=== PATIENT | female | born 1980 | race African-American/Black ===

== ENCOUNTER 2017-05-11 08:45 | Emergency (ER) | payer MEDICAID, OTHER ==
[~2017-05-11] VITALS: Ht 167.6 cm; Wt 133.0 kg
[2017-05-11 08:55] VITALS: BP 159/97
[2017-05-11] MEDS ORDERED: METF500T4 PO (08:59)
[2017-05-11] MEDS ORDERED: HYDR25TA PO (08:59)
[2017-05-11] MEDS ORDERED: BENA20TA3 PO (08:59)
[2017-05-11] MEDS ORDERED: GLIP10TA10 PO (08:59)
== END 2017-05-11 13:41 | disposition home or self-care (01) ==
LOC: ER 09:21
DX: M62.838 Other muscle spasm (principal); M54.2 Cervicalgia; M54.6 Pain in thoracic spine; I10 Essential (primary) hypertension; E11.9 Type 2 diabetes mellitus without complications
CPT/HCPCS: 81025; 99283

== ENCOUNTER 2017-09-05 09:09 | Emergency (ER) | payer MEDICAID ==
[~2017-09-05] VITALS: Ht 167.6 cm; Wt 132.0 kg
[~2017-09-05 09:09] MED LIST: BENA20TA3 PO; GLIP10TA10 PO; HYDR25TA PO; METF500T4 PO
[2017-09-05] MEDS ORDERED: ALBUTEROL (0.083%) 2.5MG/3ML NEB HHN STA (10:58)
[2017-09-05] MEDS ORDERED: ALBUTEROL (0.083%) 2.5MG/3ML NEB ONE (11:08)
[2017-09-05 11:37] VITALS: BP 129/91
== END 2017-09-05 12:09 | disposition home or self-care (01) ==
LOC: ER 09:32
DX: J20.9 Acute bronchitis, unspecified (principal); I10 Essential (primary) hypertension; E11.9 Type 2 diabetes mellitus without complications; Z79.84 Long term (current) use of oral hypoglycemic drugs
CPT/HCPCS: 71045; 81025; 94640; 99283; J7611

== ENCOUNTER 2017-11-23 09:49 | Emergency (ER) | payer SELFPAY ==
[~2017-11-23] VITALS: Ht 167.6 cm; Wt 129.0 kg
[2017-11-23 11:17] LABS: CLARITY URINE CLEAR (CLEAR); COLOR URINE YELLOW (YELLOW); KETONES URINE NEGATIVE (NEGATIVE); LEUKOCYTE ESTERASE URINE NEGATIVE (NEGATIVE); NITRITE URINE NEGATIVE (NEGATIVE); OCCULT BLOOD URINE NEGATIVE (NEGATIVE); PROTEIN URINE NEGATIVE (NEGATIVE); SPECIFIC GRAVITY URINE 1.022 (1.005-1.030); UROBILINOGEN URINE 0.2 E.U./dL (0.2-1.0)
[2017-11-23 11:47] VITALS: BP 134/87
== END 2017-11-23 13:13 | disposition home or self-care (01) ==
LOC: ER 10:59
DX: B37.3 Candidiasis of vulva and vagina (principal); I10 Essential (primary) hypertension; E11.9 Type 2 diabetes mellitus without complications; Z79.84 Long term (current) use of oral hypoglycemic drugs
CPT/HCPCS: 81003; 99283

== ENCOUNTER 2019-04-24 06:47 | Emergency (ER) | payer MEDICAID ==
[~2019-04-24] VITALS: Ht 167.6 cm; Wt 120.0 kg
[~2019-04-24 06:47] MED LIST changes: +BENA20TA10 PO; -BENA20TA3 PO; +METF-414 PO; -METF500T4 PO
[2019-04-24] MEDS ORDERED: BACITRACIN ZINC OINT UDPKT TOP ONE (08:30)
[2019-04-24] MEDS ORDERED: IBUPROFEN 600MG TABLET PO ONE (08:30)
[2019-04-24] MEDS ORDERED: LIDOCAINE HCL/PF 1% 10 MG/ML 5ML VIAL IJ ONE (08:30)
[2019-04-24] MEDS: BACITRACIN ZINC OINT UDPKT TOP SCH ×2 (09:06→09:07)
[2019-04-24 09:20] VITALS: BP 148/91
== END 2019-04-24 10:01 | disposition home or self-care (01) ==
LOC: ER 06:47
DX: L03.032 Cellulitis of left toe (principal); E11.9 Type 2 diabetes mellitus without complications; I10 Essential (primary) hypertension
CPT/HCPCS: 10060; 99283; J3490

== ENCOUNTER 2019-04-26 11:43 | Emergency (ER) | payer MEDICAID ==
[~2019-04-26] VITALS: Ht 167.6 cm; Wt 120.0 kg
[2019-04-26 12:23] VITALS: BP 155/90
[2019-04-26] MEDS ORDERED: LIDOCAINE HCL/PF 1% 10 MG/ML 5ML VIAL IJ ONE (12:45)
[2019-04-26] MEDS ORDERED: BACITRACIN ZINC OINT UDPKT TOP ONE (12:45)
== END 2019-04-26 13:05 | disposition home or self-care (01) ==
LOC: ER 11:43
DX: Z48.00 Encounter for change or removal of nonsurgical wound dressing (principal); M79.675 Pain in left toe(s); I10 Essential (primary) hypertension; E11.9 Type 2 diabetes mellitus without complications
CPT/HCPCS: 99282; J3490

== ENCOUNTER 2019-08-22 20:53 | Emergency (ER) | payer MEDICAID ==
[~2019-08-22] VITALS: Ht 167.6 cm; Wt 123.0 kg
[2019-08-22] MEDS ORDERED: PREDNISONE 20MG TABLET PO ONE (22:30)
[2019-08-22] MEDS ORDERED: FAMOTIDINE 20MG TABLET PO ONE (22:30)
[2019-08-22] MEDS ORDERED: DIPHENHYDRAMINE 50MG CAPSULE PO ONE (22:30)
[2019-08-23 01:44] VITALS: BP 152/92
== END 2019-08-23 01:50 | disposition home or self-care (01) ==
LOC: ER 20:53
DX: H02.845 Edema of left lower eyelid (principal); L29.9 Pruritus, unspecified; T36.1X5A Adverse effect of cephalosporins and other beta-lactam antibiotics, initial encounter; T40.2X5A Adverse effect of other opioids, initial encounter; Y92.89 Other specified places as the place of occurrence of the external cause; Z98.890 Other specified postprocedural states; I10 Essential (primary) hypertension; E11.9 Type 2 diabetes mellitus without complications; Z79.84 Long term (current) use of oral hypoglycemic drugs; Z79.899 Other long term (current) drug therapy
CPT/HCPCS: 81025; 99284; J7512; Q0163

== ENCOUNTER 2019-09-10 06:47 | Emergency (ER) | payer MEDICAID, OTHER ==
[~2019-09-10] VITALS: Ht 167.6 cm; Wt 125.0 kg
[2019-09-10 08:44] LABS: CLARITY URINE CLEAR (CLEAR); COLOR URINE YELLOW (YELLOW); KETONES URINE NEGATIVE (NEGATIVE); LEUKOCYTE ESTERASE URINE NEGATIVE (NEGATIVE); NITRITE URINE NEGATIVE (NEGATIVE); OCCULT BLOOD URINE NEGATIVE (NEGATIVE); PROTEIN URINE 1+ (NEGATIVE); SPECIFIC GRAVITY URINE 1.025 (1.005-1.030); UROBILINOGEN URINE 0.2 E.U./dL (0.2-1.0)
[2019-09-10] MEDS ORDERED: SODIUM CHLORIDE 0.9% 1,000 ML IV ONE (08:49)
[2019-09-10 09:14] LABS: BASOPHILS % 0.6 % (0.0-2.0); CHLORIDE 100 mEq/L (98-107); EOSINOPHILS % 3.5 % (0.0-5.0); HEMATOCRIT. 39.6 % (36.0-48.0); HEMOGLOBIN. 13.2 g/dL (12.0-16.0); LYMPHOCYTES % 29.3 % (20.0-50.0); MEAN CORPUSCULAR HEMOGLOBIN 29.3 pg (28.0-32.0); MEAN CORPUSCULAR VOLUME 87.4 fL (81.0-99.0); MONOCYTES % 6.6 % (2.0-8.0); PLATELET 321 x1000/uL (130-400); RED BLOOD CELL COUNT 4.53 mill/uL (4.2-5.4); RED CELL DISTRIBUTION WIDTH 12.9 % (11.6-14.6)
[2019-09-10 09:28] LABS: BETA HYDROXYBUTYRATE 0.2 mMol/L (0.0-0.3)
[2019-09-10 09:53] VITALS: BP 158/92
== END 2019-09-10 09:54 | disposition home or self-care (01) ==
LOC: ER 06:57
DX: B37.3 Candidiasis of vulva and vagina (principal); R19.7 Diarrhea, unspecified; R00.0 Tachycardia, unspecified; E11.65 Type 2 diabetes mellitus with hyperglycemia; R03.0 Elevated blood-pressure reading, without diagnosis of hypertension; E78.5 Hyperlipidemia, unspecified; Z79.4 Long term (current) use of insulin
CPT/HCPCS: 36415; 80053; 81003; 81025; 82010; 82962; 85025; 96360; 99283; J7030

== ENCOUNTER 2019-10-03 21:30 | Emergency (ER) | payer OTHER ==
[~2019-10-03] VITALS: Ht 167.6 cm; Wt 130.0 kg
[2019-10-03 23:19] VITALS: BP 158/88
== END 2019-10-03 23:20 | disposition home or self-care (01) ==
LOC: ER 21:30
DX: J06.9 Acute upper respiratory infection, unspecified (principal); J30.9 Allergic rhinitis, unspecified; E11.9 Type 2 diabetes mellitus without complications; E78.00 Pure hypercholesterolemia, unspecified; I10 Essential (primary) hypertension; Z79.899 Other long term (current) drug therapy
CPT/HCPCS: 99281; 99283

== ENCOUNTER 2021-01-02 21:20 | Emergency (ER) | payer MEDICAID, OTHER ==
[~2021-01-02] VITALS: Ht 167.6 cm; Wt 127.0 kg
[2021-01-02 21:49] LABS: CLARITY URINE CLEAR (CLEAR); COLOR URINE YELLOW (YELLOW); KETONES URINE NEGATIVE (NEGATIVE); LEUKOCYTE ESTERASE URINE 1+ (NEGATIVE); NITRITE URINE NEGATIVE (NEGATIVE); OCCULT BLOOD URINE NEGATIVE (NEGATIVE); PROTEIN URINE NEGATIVE (NEGATIVE); SPECIFIC GRAVITY URINE 1.026 (1.005-1.030); UROBILINOGEN URINE 0.2 E.U./dL (0.2-1.0)
[2021-01-02 21:54] LABS: UCG SCREEN NEGATIVE
[2021-01-02 22:04] VITALS: BP 131/79
[2021-01-02] MEDS ORDERED: NYST15OI TP (22:17)
[2021-01-02] MEDS ORDERED: DIF15 MT (22:17)
== END 2021-01-02 22:25 | disposition home or self-care (01) ==
LOC: ER 21:20
DX: L29.2 Pruritus vulvae (principal); F12.10 Cannabis abuse, uncomplicated; E11.9 Type 2 diabetes mellitus without complications; E78.00 Pure hypercholesterolemia, unspecified; I10 Essential (primary) hypertension; Z79.899 Other long term (current) drug therapy
CPT/HCPCS: 81003; 81025; 99283

== ENCOUNTER 2021-01-27 20:48 | Emergency (ER) | payer SELFPAY ==
[~2021-01-27] VITALS: Ht 167.6 cm; Wt 125.0 kg
[~2021-01-27 20:48] MED LIST changes: +DIF15 MT; +NYST15OI TP
[2021-01-27 23:17] LABS: CLARITY URINE CLEAR (CLEAR); COLOR URINE YELLOW (YELLOW); KETONES URINE NEGATIVE (NEGATIVE); LEUKOCYTE ESTERASE URINE NEGATIVE (NEGATIVE); NITRITE URINE NEGATIVE (NEGATIVE); OCCULT BLOOD URINE TRACE (NEGATIVE); PROTEIN URINE NEGATIVE (NEGATIVE); SPECIFIC GRAVITY URINE 1.033 (1.005-1.030); UROBILINOGEN URINE 0.2 E.U./dL (0.2-1.0)
[2021-01-28 01:47] VITALS: BP 134/89
[2021-01-30 09:08] LABS: NEISSERIA GONORRHOEAE NAA Negative (Negative)
== END 2021-01-28 01:47 | disposition home or self-care (01) ==
LOC: ER 20:48
DX: N76.0 Acute vaginitis (principal); I10 Essential (primary) hypertension; E11.9 Type 2 diabetes mellitus without complications; K21.9 Gastro-esophageal reflux disease without esophagitis; Z88.1 Allergy status to other antibiotic agents; Z79.899 Other long term (current) drug therapy
CPT/HCPCS: 81003; 81025; 87210; 87491; 87591; 99283; Z7610

== ENCOUNTER 2021-02-03 23:24 | Emergency (ER) | payer MEDICAID ==
[~2021-02-03] VITALS: Ht 167.6 cm; Wt 125.0 kg
[2021-02-04 00:07] LABS: CLARITY URINE CLEAR (CLEAR); COLOR URINE YELLOW (YELLOW); KETONES URINE TRACE (NEGATIVE); LEUKOCYTE ESTERASE URINE 1+ (NEGATIVE); NITRITE URINE NEGATIVE (NEGATIVE); OCCULT BLOOD URINE 1+ (NEGATIVE); PROTEIN URINE NEGATIVE (NEGATIVE); SPECIFIC GRAVITY URINE 1.033 (1.005-1.030); UROBILINOGEN URINE 0.2 E.U./dL (0.2-1.0)
[2021-02-04 00:12] VITALS: BP 148/97
[2021-02-04] MEDS ORDERED: SULF1TAB48 PO (00:50)
[2021-02-04] MEDS ORDERED: FLUC150T5 PO (00:50)
== END 2021-02-04 01:08 | disposition home or self-care (01) ==
LOC: ER 23:24
DX: N39.0 Urinary tract infection, site not specified (principal); N76.0 Acute vaginitis; E11.9 Type 2 diabetes mellitus without complications; K21.9 Gastro-esophageal reflux disease without esophagitis; I10 Essential (primary) hypertension; F12.10 Cannabis abuse, uncomplicated; Z79.899 Other long term (current) drug therapy
CPT/HCPCS: 81003; 81025; 99283

== ENCOUNTER 2021-08-12 23:14 | Emergency (ER) | payer MEDICAID, OTHER ==
[~2021-08-12] VITALS: Ht 167.6 cm; Wt 121.0 kg
[~2021-08-12 23:14] MED LIST changes: +FLUC150T5 PO; +SULF1TAB48 PO
[2021-08-12 23:42] VITALS: BP 141/99
== END 2021-08-13 02:56 | disposition left against medical advice (07) ==
LOC: ER 23:14
DX: Z53.21 Procedure and treatment not carried out due to patient leaving prior to being seen by health care provider (principal); Z20.822 Contact with and (suspected) exposure to COVID-19; R09.89 Other specified symptoms and signs involving the circulatory and respiratory systems
CPT/HCPCS: 87426

== ENCOUNTER 2021-08-20 20:59 | Emergency (ER) | payer OTHER ==
[~2021-08-20] VITALS: Ht 167.6 cm; Wt 125.0 kg
[2021-08-21] MEDS ORDERED: IBUPROFEN 800MG TABLET PO ONE (00:15)
[2021-08-21 05:05] VITALS: BP 129/71
== END 2021-08-21 05:17 | disposition home or self-care (01) ==
LOC: ER 21:06
DX: S09.8XXA Other specified injuries of head, initial encounter (principal); S63.591A Other specified sprain of right wrist, initial encounter; E11.9 Type 2 diabetes mellitus without complications; K21.9 Gastro-esophageal reflux disease without esophagitis; I10 Essential (primary) hypertension; S00.83XA Contusion of other part of head, initial encounter; Y08.89XA Assault by other specified means, initial encounter; Y93.89 Activity, other specified; Y92.89 Other specified places as the place of occurrence of the external cause; Y99.8 Other external cause status; F12.10 Cannabis abuse, uncomplicated; Z79.899 Other long term (current) drug therapy
CPT/HCPCS: 70486; 73110; 81025; 99284

== ENCOUNTER 2021-09-22 05:38 | Emergency (ER) | payer OTHER ==
[~2021-09-22] VITALS: Ht 167.6 cm; Wt 122.0 kg
[~2021-09-22 05:38] MED LIST changes: -BENA20TA10 PO; -DIF15 MT; -FLUC150T5 PO; -GLIP10TA10 PO; +INSU100I24 SQ; +INSU100I32 SQ; -METF-414 PO; +METO-539 PO; -NYST15OI TP; +OMEP40CA20 PO; +SIMV-43 PO; -SULF1TAB48 PO
[2021-09-22 05:44] VITALS: BP 138/89
[2021-09-22 06:23] LABS: CLARITY URINE CLEAR (CLEAR); COLOR URINE YELLOW (YELLOW); KETONES URINE NEGATIVE (NEGATIVE); LEUKOCYTE ESTERASE URINE NEGATIVE (NEGATIVE); NITRITE URINE POSITIVE (NEGATIVE); OCCULT BLOOD URINE TRACE (NEGATIVE); PROTEIN URINE NEGATIVE (NEGATIVE); SPECIFIC GRAVITY URINE 1.024 (1.005-1.030)
[2021-09-22] MEDS ORDERED: NITR100C PO (06:35)
[2021-09-22] MEDS ORDERED: FLUCONAZOLE 150MG TABLET PO ONE (06:45)
[2021-09-22] MEDS ORDERED: FLUCONAZOLE 100MG TABLET PO ONE (06:45)
== END 2021-09-22 07:01 | disposition home or self-care (01) ==
LOC: ER 05:38
DX: N39.0 Urinary tract infection, site not specified (principal); B37.3 Candidiasis of vulva and vagina; E11.9 Type 2 diabetes mellitus without complications; K21.9 Gastro-esophageal reflux disease without esophagitis; F12.10 Cannabis abuse, uncomplicated; Z79.899 Other long term (current) drug therapy
CPT/HCPCS: 81003; 99283

== ENCOUNTER 2021-12-29 03:25 | Emergency (ER) | payer MEDICAID, OTHER ==
[~2021-12-29] VITALS: Ht 167.6 cm; Wt 122.0 kg
[~2021-12-29 03:25] MED LIST changes: +NITR100C PO
[2021-12-29 03:36] VITALS: BP 162/81
[2021-12-29 04:47] LABS: CLARITY URINE CLEAR (CLEAR); COLOR URINE YELLOW (YELLOW); KETONES URINE NEGATIVE (NEGATIVE); LEUKOCYTE ESTERASE URINE NEGATIVE (NEGATIVE); NITRITE URINE POSITIVE (NEGATIVE); OCCULT BLOOD URINE NEGATIVE (NEGATIVE); PROTEIN URINE 2+ (NEGATIVE); SPECIFIC GRAVITY URINE 1.021 (1.005-1.030); UROBILINOGEN URINE 0.2 E.U./dL (0.2-1.0)
[2021-12-29] MEDS ORDERED: NITROFURANTOIN 100MG M/M CAPSULE PO ONE (05:00)
[2021-12-29] MEDS ORDERED: NITR-87 MT (05:09)
[2021-12-29] MEDS ORDERED: ONDANSETRON HCL 4MG/2ML INJ IM ONE (05:15)
[2021-12-29] MEDS ORDERED: GENTAMICIN SULF 40MG/ML 2ML VIAL IM ONE (05:15)
[2021-12-29] MEDS ORDERED: AZITHROMYCIN 500 MG TABLET PO SCH (05:15)
[2021-12-29] MEDS ORDERED: TC1U15 TP (05:50)
[2021-12-31 07:08] LABS: NEISSERIA GONORRHOEAE NAA Negative (Negative)
== END 2021-12-29 07:01 | disposition home or self-care (01) ==
LOC: ER 03:25
DX: N39.0 Urinary tract infection, site not specified (principal); E11.9 Type 2 diabetes mellitus without complications; K21.9 Gastro-esophageal reflux disease without esophagitis; I10 Essential (primary) hypertension; F12.10 Cannabis abuse, uncomplicated; Z79.899 Other long term (current) drug therapy
CPT/HCPCS: 81003; 87210; 87491; 87591; 96372; 99284; J1580; J2405

== ENCOUNTER 2022-01-10 03:43 | Emergency (ER) | payer OTHER ==
[~2022-01-10] VITALS: Ht 167.6 cm; Wt 120.0 kg
[~2022-01-10 03:43] MED LIST changes: +NITR-87 MT; +TC1U15 TP
[2022-01-10] MEDS ORDERED: FLUC150T46 MT (04:09)
[2022-01-10] MEDS ORDERED: FLUCONAZOLE 100MG TABLET PO ONE (04:15)
[2022-01-10] MEDS ORDERED: FLUCONAZOLE 150MG TABLET PO SCH (04:30)
[2022-01-10 05:23] VITALS: BP 115/74
== END 2022-01-10 05:25 | disposition home or self-care (01) ==
LOC: ER 03:43
DX: B37.3 Candidiasis of vulva and vagina (principal); F12.10 Cannabis abuse, uncomplicated; E78.00 Pure hypercholesterolemia, unspecified; I10 Essential (primary) hypertension; E11.9 Type 2 diabetes mellitus without complications; Z88.1 Allergy status to other antibiotic agents; Z79.899 Other long term (current) drug therapy
CPT/HCPCS: 99283

== ENCOUNTER 2022-02-14 19:57 | Emergency (ER) | payer MEDICAID, OTHER ==
[~2022-02-14] VITALS: Ht 167.6 cm; Wt 128.3 kg
[~2022-02-14 19:57] MED LIST changes: +FLUC150T46 MT
[2022-02-14 20:25] VITALS: BP 174/104
[2022-02-14] MEDS ORDERED: ACETAMINOPHEN 325MG TABLET PO ONE (21:00)
[2022-02-14] MEDS ORDERED: IBUPROFEN 400MG TABLET PO ONE (21:00)
[2022-02-14] MEDS ORDERED: IBUP-2028 MT (22:17)
[2022-02-14] MEDS ORDERED: TOPUD PO (22:17)
== END 2022-02-14 23:15 | disposition home or self-care (01) ==
LOC: ER 19:57
DX: B34.9 Viral infection, unspecified (principal); F12.10 Cannabis abuse, uncomplicated; E11.9 Type 2 diabetes mellitus without complications; I10 Essential (primary) hypertension; E78.00 Pure hypercholesterolemia, unspecified; Z01.84 Encounter for antibody response examination; Z20.822 Contact with and (suspected) exposure to COVID-19; Z88.1 Allergy status to other antibiotic agents; Z79.899 Other long term (current) drug therapy
CPT/HCPCS: 87426; 99283; C9803

== ENCOUNTER 2022-03-12 12:34 | Emergency (ER) | payer OTHER ==
[~2022-03-12] VITALS: Ht 167.6 cm; Wt 130.0 kg
[~2022-03-12 12:34] MED LIST changes: +IBUP-2028 MT; +TOPUD PO
[2022-03-12] MEDS ORDERED: GENTAMICIN SULF 40MG/ML 2ML VIAL IM ONE (16:30)
[2022-03-12] MEDS ORDERED: AZITHROMYCIN 500 MG TABLET PO ONE (16:30)
[2022-03-12] MEDS ORDERED: METR-167 MT (17:04)
[2022-03-12] MEDS ORDERED: DIF15 MT (17:04)
[2022-03-12 17:25] VITALS: BP 135/66
[2022-03-15 09:06] LABS: NEISSERIA GONORRHOEAE NAA Negative (Negative)
== END 2022-03-12 17:26 | disposition home or self-care (01) ==
LOC: ER 12:34
DX: N76.0 Acute vaginitis (principal); A64 Unspecified sexually transmitted disease; E11.9 Type 2 diabetes mellitus without complications; K21.9 Gastro-esophageal reflux disease without esophagitis; E78.00 Pure hypercholesterolemia, unspecified; I10 Essential (primary) hypertension; F12.10 Cannabis abuse, uncomplicated; Z79.899 Other long term (current) drug therapy
CPT/HCPCS: 81025; 87210; 87491; 87591; 96372; 99283; J1580

== ENCOUNTER 2022-04-22 00:13 | Emergency (ER) | payer MEDICAID, OTHER ==
[~2022-04-22] VITALS: Ht 170.2 cm; Wt 130.9 kg
[~2022-04-22 00:13] MED LIST changes: +DIF15 MT; +METR-167 MT
[2022-04-22 01:15] VITALS: BP 199/123
[2022-04-22] MEDS ORDERED: FLUCONAZOLE 100MG TABLET PO ONE (01:45)
[2022-04-22 01:56] LABS: CLARITY URINE CLEAR (CLEAR); COLOR URINE YELLOW (YELLOW); KETONES URINE NEGATIVE (NEGATIVE); LEUKOCYTE ESTERASE URINE 1+ (NEGATIVE); NITRITE URINE NEGATIVE (NEGATIVE); OCCULT BLOOD URINE TRACE (NEGATIVE); PROTEIN URINE 3+ (NEGATIVE); SPECIFIC GRAVITY URINE 1.026 (1.005-1.030); UROBILINOGEN URINE 0.2 E.U./dL (0.2-1.0)
[2022-04-22] MEDS ORDERED: FLUCONAZOLE 150MG TABLET PO NR (02:00)
[2022-04-22] MEDS ORDERED: DIF15 MT (02:16)
[2022-04-22] MEDS ORDERED: CLONIDINE 0.2MG TABLET PO NR (02:30)
== END 2022-04-22 02:30 | disposition home or self-care (01) ==
LOC: ER 00:13
DX: B37.3 Candidiasis of vulva and vagina (principal); E11.65 Type 2 diabetes mellitus with hyperglycemia; I16.0 Hypertensive urgency; E78.00 Pure hypercholesterolemia, unspecified; Z63.79 Other stressful life events affecting family and household; Z71.89 Other specified counseling; Z79.4 Long term (current) use of insulin; Z79.899 Other long term (current) drug therapy
CPT/HCPCS: 81003; 82962; 99283

== ENCOUNTER 2022-06-10 23:46 | Emergency (ER) | payer MEDICAID, OTHER ==
[~2022-06-10] VITALS: Ht 167.6 cm; Wt 130.9 kg
[2022-06-10 23:52] VITALS: BP 191/108
[2022-06-11] MEDS ORDERED: FLUCONAZOLE 50MG TABLET PO ONE (01:15)
[2022-06-11] MEDS ORDERED: FLUCONAZOLE 150MG TABLET PO NR (01:30)
== END 2022-06-11 01:37 | disposition home or self-care (01) ==
LOC: ER 06-11 00:10
DX: L29.9 Pruritus, unspecified (principal); F12.10 Cannabis abuse, uncomplicated; E11.9 Type 2 diabetes mellitus without complications; K21.9 Gastro-esophageal reflux disease without esophagitis; I10 Essential (primary) hypertension; Z79.899 Other long term (current) drug therapy
CPT/HCPCS: 87210; 99283

== ENCOUNTER 2022-06-18 06:23 | Emergency (ER) | payer OTHER ==
[~2022-06-18] VITALS: Ht 167.6 cm; Wt 130.0 kg
[2022-06-18] MEDS ORDERED: KETOROLAC 30MG/ML VIAL IM ONE (07:45)
[2022-06-18 07:56] VITALS: BP 128/86
== END 2022-06-18 08:01 | disposition home or self-care (01) ==
LOC: ER 06:23
DX: J06.9 Acute upper respiratory infection, unspecified (principal); R05.9 Cough, unspecified; R09.81 Nasal congestion; E11.9 Type 2 diabetes mellitus without complications; I10 Essential (primary) hypertension; F12.10 Cannabis abuse, uncomplicated; Z79.899 Other long term (current) drug therapy
CPT/HCPCS: 81025; 96372; 99283; J1885

== ENCOUNTER 2022-07-17 15:56 | Emergency (ER) | payer MEDICAID, OTHER ==
[~2022-07-17] VITALS: Ht 172.7 cm; Wt 90.0 kg
[2022-07-17 16:04] VITALS: BP 153/98
[2022-07-17] MEDS ORDERED: DIF15 MT (19:28)
== END 2022-07-17 19:42 | disposition home or self-care (01) ==
LOC: ER 15:56
DX: B37.31 Acute candidiasis of vulva and vagina (principal); I10 Essential (primary) hypertension; E11.9 Type 2 diabetes mellitus without complications; Z79.4 Long term (current) use of insulin; Z79.899 Other long term (current) drug therapy
CPT/HCPCS: 81025; 99282; 99283

== ENCOUNTER 2023-11-27 20:36 | Inpatient (IN) | payer MEDICAID ==
[~2023-11-27] VITALS: Ht 167.6 cm; Wt 126.1 kg
[2023-11-27 21:43] LABS: BASOPHILS % 0.3 % (0.0-2.0); EOSINOPHILS % 1.5 % (0.0-5.0); HEMATOCRIT. 39.9 % (36.0-48.0); HEMOGLOBIN. 13.7 g/dL (12.0-16.0); LYMPHOCYTES % 27.6 % (20.0-50.0); MEAN CORPUSCULAR HGB CONC 34.2 g/dL (31.0-37.0); MEAN CORPUSCULAR VOLUME 87.6 fL (81.0-99.0); MEAN PLATELET VOLUME 9.6 fl (7.4-10.4); MONOCYTES % 7.9 % (2.0-8.0); NEUTROPHILS % 62.7 % (40.0-76.0); PLATELET 338 x1000/uL (130-400); RED BLOOD CELL COUNT 4.56 mill/uL (4.2-5.4); RED CELL DISTRIBUTION WIDTH 13.8 % (11.6-14.6); WHITE BLOOD COUNT 8.6 x1000/uL (4.5-11.0)
[2023-11-27 21:48] LABS: CHLORIDE 91 mEq/L (98-107); POTASSIUM 3.7 mEq/L (3.5-5.1); SODIUM 129 mEq/L (136-145)
[2023-11-27 21:49] LABS: CARBON DIOXIDE 24 mEq/L (21-32)
[2023-11-27 21:50] LABS: CALCIUM 9.7 mg/dL (8.7-10.4)
[2023-11-27 21:54] LABS: CREATININE 4.1 mg/dL (0.6-1.0); UREA NITROGEN BLOOD 30 mg/dL (9-23)
[2023-11-27 21:55] LABS: TROPONIN I HIGH SENSITIVITY 8 ng/L (3.0-34)
[2023-11-27 21:56] LABS: ALANINE AMINOTRANSFERASE 20 IU/L (10-49); ALBUMIN 4.8 g/dL (3.2-4.8); ASPARTATE AMINOTRANSFERASE 25 IU/L (<34)
[2023-11-27 21:57] LABS: BILIRUBIN TOTAL 0.8 mg/dL (0.1-1.0); GLUCOSE 419 mg/dL (70-105)
[2023-11-27 21:58] LABS: PROTEIN TOTAL 9.3 g/dL (6.0-8.3)
[2023-11-27 23:45] LABS: HCG SCREEN NEGATIVE
[2023-11-28] MEDS ORDERED: POTASSIUM CHLORIDE 30 MEQ in DEXT 5%/0.9% NACL 985 ML IV SCH
[2023-11-28] MEDS: SODIUM CHLORIDE 0.9% 1,000 ML IV NR (00:10)
[2023-11-28] MEDS: ONDANSETRON HCL 4MG/2ML INJ IV NR (00:27)
[2023-11-28] MEDS: INSULIN REGULAR (HUMULIN R) 1000UNITS/10ML VIAL SUBCUT NR (00:30)
[2023-11-28] MEDS ORDERED: DEXTROSE 50% WATER 50ML SYRINGE IV PRN (02:30)
[2023-11-28] MEDS ORDERED: ACETAMINOPHEN 650MG/20.3ML UDC GT PRN (02:30)
[2023-11-28] MEDS ORDERED: ONDANSETRON HCL 4MG/2ML INJ IV PRN (02:30)
[2023-11-28] MEDS ORDERED: IPRATROPIUM/ALBUTEROL 0.5-3(2.5)MG/3ML NEB HHN PRN (02:30)
[2023-11-28] MEDS ORDERED: MAGNESIUM/ALUMINUM HYDROXIDE/SIMETHICONE 30ML UDC PO PRN (02:30)
[2023-11-28] MEDS: DEXT IV SCH (03:17)
[2023-11-28] MEDS: PANTOPRAZOLE SODIUM 40 MG/VIAL IV SCH (03:17)
[2023-11-28] MEDS: NACL IV SCH (03:17)
[2023-11-28] MEDS: POTASSIUM CHLORIDE IV SCH (03:17)
[2023-11-28 03:55] VITALS: BP 139/79; PULSE 93; RESP 20; TEMP 98.3
[2023-11-28 04:59] VITALS: BP 139/79; PULSE 96; RESP 20; TEMP 98.3
[2023-11-28] MEDS: BLOOD SUGAR DIAGNOSTIC STRIP TEST SCH (06:42)
[2023-11-28] MEDS: INSULIN REGULAR (HUMULIN R) 1000UNITS/10ML VIAL IV SCH (06:45)
[2023-11-28 08:00] VITALS: BP 120/84; PULSE 107; RESP 18; TEMP 97.7
[2023-11-28] MEDS: ENOXAPARIN 40MG/0.4ML SYR SUBCUT SCH (08:09)
[2023-11-28] MEDS: INSULIN LISPRO 100 UNITS/ML SUBCUT SCH (08:10)
[2023-11-28 08:18] LABS: CHLORIDE 93 mEq/L (98-107); POTASSIUM 3.6 mEq/L (3.5-5.1); SODIUM 128 mEq/L (136-145)
[2023-11-28 08:19] LABS: CALCIUM 9.3 mg/dL (8.7-10.4); CARBON DIOXIDE 25 mEq/L (21-32)
[2023-11-28 08:24] LABS: GLUCOSE 368 mg/dL (70-105); UREA NITROGEN BLOOD 30 mg/dL (9-23)
[2023-11-28 08:26] LABS: PHOSPHORUS 2.9 mg/dL (2.5-4.9)
[2023-11-28 08:36] LABS: HEPATITIS B SURFACE ANTIGEN NEGATIVE (Negative)
[2023-11-28 08:57] LABS: HEPATITIS C AB NON REACTIVE (Neg) (Negative)
[2023-11-28] MEDS: SODIUM CHLORIDE 0.9% 1,000 ML IV SCH (10:21)
[2023-11-28 12:00] VITALS: BP 132/92; PULSE 106; RESP 18; TEMP 96.1
[2023-11-28] MEDS ORDERED: LISI40TA13 PO (13:22)
[2023-11-28] MEDS ORDERED: QUET300T2 PO (13:22)
[2023-11-28] MEDS: HYDROCHLOROTHIAZIDE 25MG TABLET PO SCH (13:49)
[2023-11-28] MEDS: INFLUENZA VACCINE 05/PF 0.5 ML SYRINGE IM ONE (14:53)
[2023-11-28 15:02] LABS: CLARITY URINE CLEAR (CLEAR); COLOR URINE YELLOW (YELLOW); GLUCOSE URINE 3+ (NEGATIVE); KETONES URINE NEGATIVE (NEGATIVE); LEUKOCYTE ESTERASE URINE NEGATIVE (NEGATIVE); NITRITE URINE NEGATIVE (NEGATIVE); OCCULT BLOOD URINE NEGATIVE (NEGATIVE); PROTEIN URINE TRACE (NEGATIVE); SPECIFIC GRAVITY URINE 1.021 (1.005-1.030); UROBILINOGEN URINE 0.2 E.U./dL (0.2-1.0)
[2023-11-28 15:10] LABS: *AMPHETAMINES SCREEN URINE NEGATIVE (NEGATIVE); *BARBITURATES SCREEN URINE NEGATIVE (NEGATIVE); *BENZODIAZEPINES SCREEN URINE NEGATIVE (NEGATIVE); *COCAINE SCREEN URINE PRESUMPTIVE POSITIVE (NEGATIVE); ECSTASY MDMA SCREEN URINE NEGATIVE (NEGATIVE); METHADONE URINE SCREEN NEGATIVE (NEGATIVE); OPIATES URINE SCREEN NEGATIVE (NEGATIVE); PHENCYCLIDINE URINE SCREEN NEGATIVE (NEGATIVE)
[2023-11-28 15:11] LABS: CANNABINOID URINE SCREEN PRESUMPTIVE POSITIVE (NEGATIVE)
[2023-11-28 15:27] LABS: SQUAMOUS EPITHELIAL CELL URINE 1+ /lpf (RARE/1+)
[2023-11-28 15:28] LABS: BACTERIA URINE 1+; WBC URINE 0-2 /hpf (0-2)
[2023-11-28 15:29] LABS: RBC URINE 0-2 /hpf (0-2)
[2023-11-28 16:10] VITALS: BP 120/71; PULSE 87; RESP 18; TEMP 98.8
[2023-11-28 20:00] VITALS: BP 140/91; PULSE 94; RESP 19; TEMP 98.1
[2023-11-28] MEDS: QUETIAPINE FUMARATE 200MG TABLET PO SCH (21:23)
[2023-11-28] MEDS: INSULIN GLARGINE 100 UNITS/ML SUBCUT SCH (21:46)
[2023-11-28] MEDS: ATORVASTATIN CALCIUM 40MG TABLET PO SCH (21:54)
[2023-11-29] VITALS (7 sets, daily range): BP systolic 118–164; BP diastolic 71–109; PULSE 91–108; RESP 18–22; TEMP 96.9–97.7
[2023-11-29 07:01] LABS: BASOPHILS % 0.2 % (0.0-2.0); EOSINOPHILS % 4.5 % (0.0-5.0); HEMATOCRIT. 34.3 % (36.0-48.0); HEMOGLOBIN. 11.6 g/dL (12.0-16.0); LYMPHOCYTES % 35.6 % (20.0-50.0); MEAN CORPUSCULAR HEMOGLOBIN 29.5 pg (28.0-32.0); MEAN CORPUSCULAR HGB CONC 33.9 g/dL (31.0-37.0); MEAN PLATELET VOLUME 9.5 fl (7.4-10.4); MONOCYTES % 10.8 % (2.0-8.0); NEUTROPHILS % 48.9 % (40.0-76.0); PLATELET 248 x1000/uL (130-400); RED BLOOD CELL COUNT 3.95 mill/uL (4.2-5.4); RED CELL DISTRIBUTION WIDTH 13.7 % (11.6-14.6); WHITE BLOOD COUNT 5.3 x1000/uL (4.5-11.0)
[2023-11-29 07:40] LABS: CALCIUM 8.8 mg/dL (8.7-10.4); POTASSIUM 3.9 mEq/L (3.5-5.1)
[2023-11-29 07:48] LABS: CREATININE 1.7 mg/dL (0.6-1.0); THYROID STIMULATING HORMONE 0.81 uIU/mL (0.55-4.78)
[2023-11-29] MEDS: OMEPRAZOLE 20MG CAPSULE EXTENDED RELEASE PO SCH (08:03)
[2023-11-29] MEDS: INSULIN LISPRO 100 UNITS/ML SUBCUT SCH (17:20)
[2023-11-29] MEDS: INSULIN GLARGINE 100 UNITS/ML SUBCUT SCH (22:50)
[2023-11-30] VITALS: BP 134/87; PULSE 92; RESP 18; TEMP 97.7
[2023-11-30 04:00] VITALS: BP 132/86; PULSE 84; RESP 18; TEMP 97.1
[2023-11-30 08:00] VITALS: BP 146/104; PULSE 94; RESP 20; TEMP 97.5
[2023-11-30 10:28] VITALS: BP 146/104; PULSE 99; TEMP 97.5; O2SAT 98
[2023-12-01] MEDS ORDERED: FAMOTIDINE 20MG TABLET PO SCH (07:40)
== END 2023-11-30 11:30 | disposition home or self-care (01) | DRG 420 ==
LOC: ER 20:36 → 7WST 11-28 04:50
PROVIDERS: ADMIT Hospitalist; ATTEND Hospitalist
DX: E11.65 Type 2 diabetes mellitus with hyperglycemia (principal); N17.0 Acute kidney failure with tubular necrosis; I50.9 Heart failure, unspecified; I11.0 Hypertensive heart disease with heart failure; E87.1 Hypo-osmolality and hyponatremia; F41.1 Generalized anxiety disorder; E86.9 Volume depletion, unspecified; K21.9 Gastro-esophageal reflux disease without esophagitis; Z79.4 Long term (current) use of insulin; Z88.1 Allergy status to other antibiotic agents; Z91.148 Patient's other noncompliance with medication regimen for other reason
CPT/HCPCS: 36415; 74176; 80048; 80053; 80061; 80305; 81003; 82010; 82533; 82803; 82962; 83036; 83605; 83735; 83880; 84100; 84443; 84484; 84703; 85025; 86705; 87340; 90686; 93005; 93306; 99285; C9113; J1650; J1815; J2405; J3480; J7030; J7042

== ENCOUNTER 2024-01-11 16:50 | Emergency (ER) | payer MEDICAID ==
[~2024-01-11] VITALS: Ht 172.7 cm; Wt 120.0 kg
[~2024-01-11 16:50] MED LIST changes: -DIF15 MT; -FLUC150T46 MT; +LISI40TA13 PO; -METO-539 PO; -METR-167 MT; -NITR-87 MT; -NITR100C PO; +QUET300T2 PO; -TC1U15 TP
[2024-01-11 17:08] VITALS: TEMP 98.1; O2SAT 95
[2024-01-11 17:39] LABS: CLARITY URINE CLOUDY (CLEAR); COLOR URINE YELLOW (YELLOW); GLUCOSE URINE 3+ (NEGATIVE); KETONES URINE NEGATIVE (NEGATIVE); LEUKOCYTE ESTERASE URINE NEGATIVE (NEGATIVE); NITRITE URINE POSITIVE (NEGATIVE); OCCULT BLOOD URINE NEGATIVE (NEGATIVE); PROTEIN URINE 1+ (NEGATIVE); SPECIFIC GRAVITY URINE 1.029 (1.005-1.030); UROBILINOGEN URINE 0.2 E.U./dL (0.2-1.0)
[2024-01-11 18:01] LABS: BACTERIA URINE 2+; RBC URINE 0-2 /hpf (0-2); SQUAMOUS EPITHELIAL CELL URINE 1+ /lpf (RARE/1+); WBC URINE 0-2 /hpf (0-2)
[2024-01-11] MEDS ORDERED: FLUC150T46 MT (19:03)
[2024-01-11] MEDS ORDERED: NITR-87 MT (19:03)
[2024-01-11] MEDS ORDERED: BENZ200C52 MT (19:03)
[2024-01-11 19:16] VITALS: BP 134/77; PULSE 78; RESP 20
== END 2024-01-11 19:19 | disposition home or self-care (01) ==
LOC: ER 16:50
DX: R05.9 Cough, unspecified (principal); N30.90 Cystitis, unspecified without hematuria; E11.9 Type 2 diabetes mellitus without complications; K21.9 Gastro-esophageal reflux disease without esophagitis; I10 Essential (primary) hypertension; F12.10 Cannabis abuse, uncomplicated; Z79.899 Other long term (current) drug therapy
CPT/HCPCS: 71045; 81003; 81025; 99284

== ENCOUNTER 2024-06-14 18:08 | Emergency (ER) | payer MEDICAID ==
[~2024-06-14] VITALS: Ht 167.6 cm; Wt 120.2 kg
[~2024-06-14 18:08] MED LIST changes: +BENZ200C52 MT; +FLUC150T46 MT; +NITR-87 MT
[2024-06-14 18:22] VITALS: O2SAT 100
[2024-06-14] MEDS: LOSARTAN 100 MG TABLET PO ONE (19:21)
[2024-06-14 19:55] LABS: BASOPHILS % 0.3 % (0.0-2.0); EOSINOPHILS % 3.6 % (0.0-5.0); HEMATOCRIT. 38.5 % (36.0-48.0); HEMOGLOBIN. 12.6 g/dL (12.0-16.0); LYMPHOCYTES % 33.1 % (20.0-50.0); MEAN CORPUSCULAR HEMOGLOBIN 28.6 pg (28.0-32.0); MEAN CORPUSCULAR HGB CONC 32.7 g/dL (31.0-37.0); MEAN CORPUSCULAR VOLUME 87.6 fL (81.0-99.0); MEAN PLATELET VOLUME 8.4 fl (7.4-10.4); MONOCYTES % 8.6 % (2.0-8.0); NEUTROPHILS % 54.4 % (40.0-76.0); PLATELET 387 x1000/uL (130-400); RED BLOOD CELL COUNT 4.39 mill/uL (4.2-5.4); RED CELL DISTRIBUTION WIDTH 14.3 % (11.6-14.6); WHITE BLOOD COUNT 9.5 x1000/uL (4.5-11.0)
[2024-06-14 20:07] LABS: POTASSIUM 3.6 mEq/L (3.5-5.1)
[2024-06-14 20:08] LABS: CALCIUM 9.5 mg/dL (8.7-10.4)
[2024-06-14 20:10] LABS: CLARITY URINE CLOUDY (CLEAR); COLOR URINE YELLOW (YELLOW); GLUCOSE URINE 3+ (NEGATIVE); KETONES URINE TRACE (NEGATIVE); LEUKOCYTE ESTERASE URINE NEGATIVE (NEGATIVE); NITRITE URINE NEGATIVE (NEGATIVE); OCCULT BLOOD URINE TRACE (NEGATIVE); PH URINE 5.5 (4.5-8.0); PROTEIN URINE 4+ (NEGATIVE); SPECIFIC GRAVITY URINE 1.036 (1.005-1.030)
[2024-06-14 20:13] LABS: CREATININE 1.3 mg/dL (0.6-1.0)
[2024-06-14 20:25] LABS: BACTERIA URINE 2+; RBC URINE 0-2 /hpf (0-2); SQUAMOUS EPITHELIAL CELL URINE 1+ /lpf (RARE/1+); WBC URINE 0-2 /hpf (0-2)
[2024-06-14] MEDS ORDERED: LISI40TA13 PO (21:29)
[2024-06-14] MEDS ORDERED: LOSA50TA41 MT (21:29)
[2024-06-14 21:43] VITALS: BP 145/60; PULSE 75; RESP 20; TEMP 36.94740; O2SAT 100
== END 2024-06-14 21:45 | disposition home or self-care (01) ==
LOC: ER 18:08
DX: I10 Essential (primary) hypertension (principal); E11.9 Type 2 diabetes mellitus without complications; Z88.1 Allergy status to other antibiotic agents; Z79.899 Other long term (current) drug therapy; Z79.4 Long term (current) use of insulin
CPT/HCPCS: 36415; 71045; 80048; 81003; 85025; 99284

== ENCOUNTER 2024-09-09 07:24 | Emergency (ER) | payer MEDICAID ==
[~2024-09-09] VITALS: Ht 167.6 cm; Wt 121.0 kg
[~2024-09-09 07:24] MED LIST changes: +LOSA50TA41 MT
[2024-09-09 07:32] VITALS: BP 175/103; PULSE 70; RESP 16; TEMP 36.8; O2SAT 100
[2024-09-09] MEDS ORDERED: METH-653 MT (08:52)
[2024-09-09] MEDS ORDERED: BO1 TP (08:52)
== END 2024-09-09 09:19 | disposition home or self-care (01) ==
LOC: ER 07:24
DX: S13.4XXA Sprain of ligaments of cervical spine, initial encounter (principal); L60.0 Ingrowing nail; K21.9 Gastro-esophageal reflux disease without esophagitis; E11.9 Type 2 diabetes mellitus without complications; I10 Essential (primary) hypertension; F12.90 Cannabis use, unspecified, uncomplicated; Z88.1 Allergy status to other antibiotic agents; Z79.899 Other long term (current) drug therapy; Z79.4 Long term (current) use of insulin; X58.XXXA Exposure to other specified factors, initial encounter; Y93.89 Activity, other specified; Y92.89 Other specified places as the place of occurrence of the external cause; Y99.8 Other external cause status
CPT/HCPCS: 99283

== ENCOUNTER 2024-09-16 01:21 | Emergency (ER) | payer MEDICAID ==
[~2024-09-16] VITALS: Ht 167.6 cm; Wt 118.0 kg
[~2024-09-16 01:21] MED LIST changes: +BO1 TP; +METH-653 MT
[2024-09-16 01:32] VITALS: O2SAT 97
[2024-09-16 01:34] VITALS: TEMP 36.9; O2SAT 97
[2024-09-16 04:42] VITALS: BP 187/108; PULSE 76; RESP 16; TEMP 98.4
[2024-09-16] MEDS: KETOROLAC 30MG/ML VIAL IM ONE (04:42)
[2024-09-16] MEDS: ACETAMINOPHEN 325MG TABLET PO ONE (04:42)
[2024-09-16] MEDS ORDERED: FLUC150T46 MT (05:47)
[2024-09-16] MEDS ORDERED: IBUP-2029 MT (05:47)
[2024-09-16] MEDS ORDERED: CEPH500C2 MT (05:47)
[2024-09-16] MEDS ORDERED: SULF1TAB48 MT (05:47)
[2024-09-17] MEDS ORDERED: IBUP-2029 MT (10:27)
[2024-09-17] MEDS ORDERED: HYDR-4001 MT (10:27)
== END 2024-09-16 05:55 | disposition home or self-care (01) ==
LOC: ER 01:21
DX: L03.012 Cellulitis of left finger (principal); E11.9 Type 2 diabetes mellitus without complications; I10 Essential (primary) hypertension; F12.10 Cannabis abuse, uncomplicated; Z79.899 Other long term (current) drug therapy; Z79.4 Long term (current) use of insulin
CPT/HCPCS: 99283; 10060; 96372; J1885; 26010

== ENCOUNTER 2024-09-17 08:52 | Emergency (ER) | payer MEDICAID ==
[~2024-09-17] VITALS: Ht 167.6 cm; Wt 120.0 kg
[~2024-09-17 08:52] MED LIST changes: +CEPH500C2 MT; +IBUP-2029 MT; +SULF1TAB48 MT
[2024-09-17 08:56] VITALS: O2SAT 95
[2024-09-17 09:00] VITALS: BP 200/106; PULSE 73; RESP 16; TEMP 36.9; O2SAT 100
[2024-09-17] MEDS ORDERED: HYDR-4001 MT (10:27)
[2024-09-17] MEDS ORDERED: IBUP-2029 MT (10:27)
== END 2024-09-17 10:52 | disposition home or self-care (01) ==
LOC: ER 08:52
DX: S61.303A Unspecified open wound of left middle finger with damage to nail, initial encounter (principal); I10 Essential (primary) hypertension; E11.9 Type 2 diabetes mellitus without complications; K21.9 Gastro-esophageal reflux disease without esophagitis; F12.90 Cannabis use, unspecified, uncomplicated; Z79.899 Other long term (current) drug therapy; Z79.4 Long term (current) use of insulin; X58.XXXA Exposure to other specified factors, initial encounter; Y93.89 Activity, other specified; Y92.89 Other specified places as the place of occurrence of the external cause; Y99.8 Other external cause status
CPT/HCPCS: 11730; 99284; Z7610

== ENCOUNTER 2024-10-17 08:47 | Emergency (ER) | payer MEDICAID ==
[~2024-10-17] VITALS: Ht 170.2 cm; Wt 70.0 kg
[~2024-10-17 08:47] MED LIST changes: +HYDR-4001 MT
[2024-10-17 08:55] VITALS: O2SAT 99
[2024-10-17 09:21] LABS: CLARITY URINE TURBID (CLEAR); COLOR URINE YELLOW (YELLOW); GLUCOSE URINE 3+ (NEGATIVE); KETONES URINE NEGATIVE (NEGATIVE); LEUKOCYTE ESTERASE URINE 2+ (NEGATIVE); NITRITE URINE NEGATIVE (NEGATIVE); OCCULT BLOOD URINE 3+ (NEGATIVE); PH URINE 5.5 (4.5-8.0); PROTEIN URINE 3+ (NEGATIVE); SPECIFIC GRAVITY URINE 1.022 (1.005-1.030); UROBILINOGEN URINE 0.2 E.U./dL (0.2-1.0)
[2024-10-17] MEDS ORDERED: FLUC150T46 MT (09:26)
[2024-10-17] MEDS ORDERED: CEFP200T14 MT (09:26)
[2024-10-17 09:42] VITALS: BP 148/111; PULSE 82; RESP 16; TEMP 36.7; O2SAT 99
[2024-10-17 10:12] LABS: SQUAMOUS EPITHELIAL CELL URINE FEW /lpf (RARE/1+)
[2024-10-17 10:13] LABS: BACTERIA URINE 4+; WBC URINE 50-100 /hpf (0-2)
[2024-10-17 10:14] LABS: YEAST URINE NONE SEEN
== END 2024-10-17 09:45 | disposition home or self-care (01) ==
LOC: ER 08:47
DX: N30.90 Cystitis, unspecified without hematuria (principal); E11.9 Type 2 diabetes mellitus without complications; I10 Essential (primary) hypertension; K21.9 Gastro-esophageal reflux disease without esophagitis; F12.90 Cannabis use, unspecified, uncomplicated; Z79.899 Other long term (current) drug therapy
CPT/HCPCS: 81003; 81025; 87077; 87186; 99283

== ENCOUNTER 2025-06-17 03:48 | Emergency (ER) | payer MEDICAID ==
[~2025-06-17] VITALS: Ht 162.6 cm; Wt 103.0 kg
[~2025-06-17 03:48] MED LIST changes: +CEFP200T14 MT; +IBUP-1455 MT; -IBUP-2029 MT; -LISI40TA13 PO; +LISI40TA21 PO
[2025-06-17 04:46] VITALS: O2SAT 100
[2025-06-17] MEDS ORDERED: AMOX-494 MT (04:51)
[2025-06-17] MEDS ORDERED: FLUC150T46 MT (04:51)
[2025-06-17] MEDS ORDERED: IBUP-1455 MT (04:51)
[2025-06-17 04:56] VITALS: TEMP 36.6
[2025-06-17] MEDS: DEXAMETHASONE 4MG/ML 1ML VIAL IM SCH (05:14)
[2025-06-17] MEDS: KETOROLAC 30MG/ML VIAL IM ONE (05:14)
[2025-06-17] MEDS: AMOXICILLIN 500MG CAPSULE PO ONE (05:14)
[2025-06-17 05:18] VITALS: BP 178/113; PULSE 83; RESP 16; O2SAT 99
== END 2025-06-17 05:22 | disposition home or self-care (01) ==
LOC: ER 03:48
DX: J03.90 Acute tonsillitis, unspecified (principal); E11.9 Type 2 diabetes mellitus without complications; E78.00 Pure hypercholesterolemia, unspecified; I10 Essential (primary) hypertension; Z79.4 Long term (current) use of insulin; Z79.899 Other long term (current) drug therapy
CPT/HCPCS: 99284; 81025; 87430; 87070; 96372; J1885; J1100

== ENCOUNTER 2025-07-27 16:40 | Emergency (ER) | payer MEDICAID ==
[~2025-07-27] VITALS: Ht 167.6 cm; Wt 114.0 kg
[~2025-07-27 16:40] MED LIST changes: +AMOX-494 MT
[2025-07-27 16:43] VITALS: TEMP 36.7; O2SAT 98
[2025-07-27 19:29] LABS: CLARITY URINE CLEAR (CLEAR); COLOR URINE YELLOW (YELLOW); GLUCOSE URINE 3+ (NEGATIVE); KETONES URINE NEGATIVE (NEGATIVE); LEUKOCYTE ESTERASE URINE NEGATIVE (NEGATIVE); NITRITE URINE NEGATIVE (NEGATIVE); OCCULT BLOOD URINE TRACE (NEGATIVE); PH URINE 5.0 (4.5-8.0); PROTEIN URINE 3+ (NEGATIVE); SPECIFIC GRAVITY URINE 1.031 (1.005-1.030); UROBILINOGEN URINE 0.2 E.U./dL (0.2-1.0)
[2025-07-27 19:51] LABS: BACTERIA URINE 1+; SQUAMOUS EPITHELIAL CELL URINE 1+ /lpf (RARE/1+); WBC URINE 0-2 /hpf (0-2)
[2025-07-27] MEDS ORDERED: DOXY100T2 MT (21:02)
[2025-07-27] MEDS: CEFTRIAXONE SODIUM 500MG VIAL IM ONE (21:18)
[2025-07-27] MEDS: LIDOCAINE HCL 1% 20ML VIAL INFIL ONE (21:18)
[2025-07-27 21:30] VITALS: BP 158/91; PULSE 88; RESP 16; O2SAT 100
[2025-07-30 05:10] LABS: CHLAMYDIA TRACHOMATIS NAA Negative (Negative); NEISSERIA GONORRHOEAE NAA Negative (Negative)
[2025-08-08] MEDS ORDERED: HYDR25TA MT (09:55)
[2025-08-08] MEDS ORDERED: ATOR10TA MT (09:57)
[2025-08-08] MEDS ORDERED: METO5TAB2 MT (14:43)
[2025-08-08] MEDS ORDERED: GABA-529 PO (14:43)
[2025-08-08] MEDS ORDERED: AMLO5TAB88 MT ×2 (14:43→18:34)
[2025-08-08] MEDS ORDERED: ONDA-239 PO ×2 (14:44→18:34)
[2025-08-08] MEDS ORDERED: METO-396 MT (18:34)
== END 2025-07-27 21:37 | disposition home or self-care (01) ==
LOC: ER 16:40
DX: Z11.3 Encounter for screening for infections with a predominantly sexual mode of transmission (principal); N89.8 Other specified noninflammatory disorders of vagina; E11.9 Type 2 diabetes mellitus without complications; I10 Essential (primary) hypertension; Z79.4 Long term (current) use of insulin; Z79.84 Long term (current) use of oral hypoglycemic drugs; Z79.899 Other long term (current) drug therapy
CPT/HCPCS: 99283; 87491; 87591; 81003; 81025; 87210; 96372; J0696; J2003